=== PATIENT | male | born 1960 | race Caucasian/White ===

== ENCOUNTER 2018-05-25 10:36 | Emergency (ER) | payer BC ==
[2018-05-25 11:38] VITALS: BP 152/92
--- NOTE | 2018-05-25 11:59 | ED ---
Throat Pain/Nasal Congestion - HPI Summary HPI Summary: 57 yr old male with the complaint of sinus pressure, congestion for better part of this latter summer, and pressure and fullness with pain in the right ear over the weekend. He states going swimming aggravated the pain. He has no other complaints. No fever or chills. Denies allergies to medications. - History of Current Complaint Chief Complaint: UCEar Time Seen by Provider: 05/25/18 11:39 - Allergies/Home Medications Allergies/Adverse Reactions: Allergies Allergy/AdvReac Type Severity Reaction Status Date / Time No Known Allergies Allergy Verified 05/25/18 11:28 Home Medications: Home Medications Aspirin 81 mg CHEW TAB* [Aspirin Low Dose TAB*] 81 mg PO DAILY 05/25/18 [ History Confirmed 05/25/18] Bp Med 05/25/18 [History] Dm/PE/Acetaminophen/Chlorphenr [Jessica-[place] Plus Cold &] 1 cap PO ONCE PRN [History Confirmed 05/25/18] MinoXIDil TAB* [Loniten TAB*] 2.5 mg PO DAILY 05/25/18 [History Confirmed ] amLODIPine/Benazepril 06/27(NF [Lotrel 06/27(NF)] 1 cap PO DAILY 05/25/18 [ History Confirmed 05/25/18] PMH/Surg Hx/FS Hx/Imm Hx Endocrine/Hematology History: Denies: Hx Diabetes, Hx Thyroid Disease, Hx Anemia Cardiovascular History: Reports: Hx Angina, Hx Coronary Artery Disease - : s/p placement of 2 stents after [place] in 2008, Hx Hypertension Denies: Hx Aneurysm, Hx Angioplasty, Hx Auto Implanted Cardiovert Defib, Hx Cardiac Arrest, Hx Cardiomegaly, Hx Congenital Heart Disease, Hx Congestive Heart Failure, Hx Hypotension, Hx Pacemaker/ICD, Hx Peripheral Vascular Disease , Hx Rheumatic Fever Respiratory History: Denies: Hx Asthma Musculoskeletal History: Reports: Hx Arthritis, Hx Back Problems Sensory History: Reports: Hx Contacts or Glasses Opthamlomology History: Reports: Hx Contacts or Glasses - Surgical History Surgery Procedure, Year, and Place: left leg surgery. appy. 4 stents Infectious Disease History: No Infectious Disease History: Denies: Traveled Outside the [place] in Last 30 Days - Family History Known Family History: Positive: Cardiac Disease - Brother CAD - Social History Occupation: Retired Lives: With Family Alcohol Use: Daily Alcohol Amount: 2-3 beers/day Substance Use Type: Reports: None Hx Tobacco Use: Yes Smoking Status (MU): Heavy Every Day Tobacco Smoker Type: Cigarettes Amount Used/How Often: 1/2 PPD Have You Smoked in the Last Year: Yes Review of Systems Constitutional: Negative Positive: Nasal Discharge, Other - sinus pain and right ear pain All Other Systems Reviewed And Are Negative: Yes Physical Exam Triage Information Reviewed: Yes Vital Signs On Initial Exam: Initial Vitals Temp Pulse Resp BP Pulse Ox 98.5 F 65 14 152/92 98 05/25/18 11:33 05/25/18 11:33 05/25/18 11:33 05/25/18 11:33 05/25/18 11:33 Vital Signs Reviewed: Yes Appearance: Positive: Well-Appearing, No Pain Distress Skin: Positive: Warm, Skin Color Reflects Adequate Perfusion Head/Face: Positive: Normal Head/Face Inspection Eyes: Positive: EOMI ENT: Positive: Pharynx normal, Nasal congestion, TM red - right with some effusion, Sinus tenderness Neck: Positive: Nontender Respiratory/Lung Sounds: Positive: Clear to Auscultation, Breath Sounds Present Cardiovascular: Positive: RRR. Negative: Murmur Abdomen Description: Positive: Nontender Musculoskeletal: Positive: Strength/ROM Intact Neurological: Positive: Sensory/Motor Intact, Alert, Oriented to Person Place, Time, CN Intact II-III Psychiatric: Positive: Normal - Ratna Coma Scale Best Eye Response: 4 - Spontaneous Best Motor Response: 6 - Obeys Commands Best Verbal Response: 5 - Oriented Coma Scale Total: 15 Diagnostics - Vital Signs Vital Signs Temp Pulse Resp BP Pulse Ox 05/25/18 11:33 98.5 F 65 14 152/92 98 - Laboratory Lab Statement: Any lab studies that have been ordered have been reviewed, and results considered in the medical decision making process. EENT Course/Dx - Course Course Of Treatment: 57 yr old male with sinusitis, and right om. Rx with cefdinir - Diagnoses Provider Diagnoses: Sinusitis, Otitis media, Hypertension Discharge - Sign-Out/Discharge Documenting (check all that apply): Patient Departure All imaging exams completed and their final reports reviewed: No Studies - Discharge Plan Condition: Good Disposition: HOME Patient Education Materials: Sinusitis (ED), Ear Infection (ED), Hypertension ( ED) Referrals: No Primary Care Phys,NOPCP [Primary Care Provider] - [facility] – [place], [place] [facility]FERRAL [Outside] - 2 Days - Billing Disposition and Condition Condition: GOOD Disposition: Home
== END 2018-05-25 12:08 | disposition home or self-care (01) ==
LOC: UCCORT 10:36
DX: J32.9 Chronic sinusitis, unspecified (principal); H66.90 Otitis media, unspecified, unspecified ear; I10 Essential (primary) hypertension; I25.10 Atherosclerotic heart disease of native coronary artery without angina pectoris; I25.2 Old myocardial infarction; F17.210 Nicotine dependence, cigarettes, uncomplicated; Z79.82 Long term (current) use of aspirin; Z79.899 Other long term (current) drug therapy; Z95.5 Presence of coronary angioplasty implant and graft
CPT/HCPCS: 99212; G0463